=== PATIENT | female | born 1985 | race Two or more races ===

== ENCOUNTER 2016-06-19 08:27 | Emergency (ER) | payer MEDICAID ==
[~2016-06-19] VITALS: Ht 170.2 cm; Wt 49.9 kg
[~2016-06-19 08:27] MED LIST: AMOXICILLIN500 MG ORAL; COLACE100 MG PO; DOXYCYCLINE MO100 MG ORAL; IBUPROFEN400 MG ORAL; IBUPROFEN600 MG ORAL; LIDOCAINE VISCO20 ML PO; MACROBID100 MG ORAL; NAPROXEN375 M2 ORAL; NKM; NORCO 5-325 TA1 EACH ORAL; OFLOXACIN10 ML OP; PHENAZOPYRIDIN200 MG ORAL; PRENATAL CAPSU1 EAC1 PO; ZITHROMAX250 MG ORAL
[2016-06-19] MEDS ORDERED: NKM (08:42)
[2016-06-19 08:46] VITALS: BP 92/57
[2016-06-19 09:21] LABS: APPEARANCE,URINE CLEAR; KETONES,URINE NEGATIVE (NEGATIVE); LEUKOCYTE ESTERASE ,URINE NEGATIVE (NEGATIVE); NITRITE,URINE NEGATIVE (NEGATIVE); PH,URINE 6 (4.5-8.0); PROTEIN,URINE NEGATIVE (NEGATIVE); UROBILINOGEN,URINE NORMAL MG/DL (0.0-1.0)
[2016-06-19] MEDS ORDERED: PETROLEUM JELL368 GM TP (10:22)
[2016-06-19 10:27] VITALS: BP 98/62
--- NOTE | 2016-06-20 15:11 | Emergency Room Report ---
History of Present Illness General Chief Complaint: Vaginal Source: Patient Present Illness HPI 30 YO F with itch/rash to below vagina for 2-3 days since being tx for vaginal fungus with fluconazole. Denies dysuria, polyuria, chance of being , previous STD. Allergies: Coded Allergies: No Known Allergies (Unverified , 10/02/12) Patient History Past Surgical History: none Pertinent Family History: none Social History: Denies: alcohol use, drug use, smoking Now: No Immunizations: UTD Reviewed Nursing Documentation: PMH: Agreed, PSxH: Agreed Nursing Documentation-PMH Past Medical History: No Stated History Hx Cardiac Problems: No Review of Systems All Other Systems: negative except mentioned in HPI Physical Exam Vital Signs Date Time Temp Pulse Resp B/P Pulse Ox O2 Delivery O2 Flow Rate FiO2 06/19/16 08:36 98.2 64 16 92/57 99 Room Air Sp02 EP Interpretation: reviewed, normal General Appearance: normal inspection, well appearing, no apparent distress, alert Head: atraumatic ENT: normal ENT inspection, hearing grossly normal, normal voice Neck: normal inspection, full range of motion, supple, no bony tend Respiratory: normal inspection, lungs clear, normal breath sounds, no respiratory distress, no retraction, no wheezing Cardiovascular #1: regular rate, rhythm, no edema Gastrointestinal: normal inspection, normal bowel sounds, non tender, soft, no guarding, no hernia Genitourinary: no CVA tenderness, other - Pelvic exam done with JANELLE Mirza. No bleeding or discharge from vagina. No vesicles on labia. There is a mobilliform rash area of 2cm on perineum with excoriations. Musculoskeletal: normal inspection, back normal, normal range of motion, Bhumi' s Sign negative Neurologic: normal inspection, alert, responsive, speech normal Psychiatric: normal inspection, judgement/insight normal, mood/affect normal Skin: normal inspection, normal color, no rash Medical Decision Making Diagnostic Impression: Primary Impression: Contact dermatitis Qualified Codes: L24.89 - Irritant contact dermatitis due to other agents ER Course 30 YO F with likely contact dermatitis from irritation/scratching vs "heat rash. " VSS. Afebrile. No vesicles, chancres or signs of STD UA negative for UTI Advised petroleum jelly for irritation, lose clothing, PMD followup [place] Last Vital Signs Date Time Temp Pulse Resp B/P Pulse Ox O2 Delivery O2 Flow Rate FiO2 06/19/16 10:27 66 12 98/62 97 Room Air 06/19/16 08:46 98.3 Status: improved Disposition: HOME, SELF-CARE Condition: Improved Scripts Petrolatum,White (Petroleum Jelly) 368 Gm Jelly..g. 368 GM TP TID for 7 Days, GM Prov: FRANCES REED M.D. 06/19/16 Patient Instructions: Vaginitis, [id number] Additional Instructions: - Apply cream to area of irritation up to 3x a day FRANCES REED M.D. Jun 20, 2016 15:11
== END 2016-06-19 10:31 | disposition home or self-care (01) ==
LOC: EMR 08:52
DX: L25.9 Unspecified contact dermatitis, unspecified cause (principal)
CPT/HCPCS: 81003; 81025; 99284

== ENCOUNTER 2016-10-09 11:53 | Emergency (ER) | payer MEDICAID ==
[~2016-10-09] VITALS: Ht 162.6 cm; Wt 50.8 kg
[~2016-10-09 11:53] MED LIST changes: +PETROLEUM JELL368 GM TP
--- NOTE | 2016-10-09 12:23 | Emergency Room Report ---
History of Present Illness General Chief Complaint: To Be Triaged Present Illness HPI 31-year-old female presents to emergency department complaining of sore throat, and bilateral ear pain x3 days. Patient reports intermittent fevers and chills states pain is exacerbated upon swallowing she rates her pain as 10 out of 10 in severity describes a tearing sensation. 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 Patient reports ill contacts with similar symptoms. Patient denies . Denies CP, Palpitations, LOC, AMS, dizziness, Changes in Vision, Sensation, paresthesias, or a sudden severe headache. Allergies: Coded Allergies: No Known Allergies (Unverified , 10/02/12) Patient History Past Medical History: see triage record Past Surgical History: none Pertinent Family History: none Now: No Immunizations: UTD Reviewed Nursing Documentation: PMH: Agreed, PSxH: Agreed Nursing Documentation-PMH Hx Cardiac Problems: No Review of Systems All Other Systems: negative except mentioned in HPI Physical Exam HR 74, temp 98.2 rr: 16, BP 103/67 , oxygen sat 99% on RA. General Appearance: no apparent distress, alert, GCS 15, non-toxic Head: normocephalic, atraumatic Eyes: bilateral eye PERRL, bilateral eye normal inspection ENT: hearing grossly normal, normal pharynx, no angioedema, normal voice, TMs + canals normal, uvula midline, moist mucus membranes, nasal congestion - clear rhinorrhea bilaterally. , tonsillar swelling, pharyngeal erythema Neck: full range of motion, no meningismus, no bony tend, supple/symm/no masses Respiratory: chest non-tender, lungs clear, normal breath sounds, speaking full sentences Cardiovascular #1: regular rate, rhythm, no edema Musculoskeletal: back normal, gait/station normal, normal range of motion, non- tender Neurologic: alert, oriented x3, responsive, motor strength/tone normal, sensory intact, speech normal Psychiatric: judgement/insight normal, memory normal, mood/affect normal Skin: normal color, no rash, warm/dry, well hydrated Lymphatic: other - bilateral subpartotid LAD. Medical Decision Making PA Attestation Dr. Merida is my supervising Physician whom patient management has been discussed with. Diagnostic Impression: Primary Impression: Pharyngitis, acute Qualified Codes: J02.0 - Streptococcal pharyngitis ER Course 31-year-old female presents to emergency department complaining of sore throat, and bilateral ear pain x3 days. Patient reports intermittent fevers and chills states pain is exacerbated upon swallowing she rates her pain as 10 out of 10 in severity describes a tearing sensation. Patient denies nausea, vomiting, abdominal pain, rashes, neck pain/stiffness or recent travel. Patient reports ill contacts with similar symptoms. 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 Ddx considered but are not limited to: pharyngitis, strep, PODIATRIC MEDICINE PROFESSOR, Ludwigs angina, URI , Post Nasal Drainage. Vital signs: are WNL, pt. is afebrile H&PE are most consistent with: pharyngitis presumed strep. ORDERS: None required at this time as the diagnosis is clinical ED INTERVENTIONS: none required at this time. DISCHARGE: At this time pt. is stable for d/c to home. Will provide printed patient care instructions, and any necessary prescriptions. Care plan and follow up instructions have been discussed with the patient prior to discharge. Disposition: HOME, SELF-CARE Condition: Stable Scripts Acetaminophen* (TYLENOL EXTRA STRENGTH*) 500 Mg Tablet 500 MG ORAL Q6H Y for Mild Pain/Temp > 100.5, #20 TAB 0 Refills Prov: Nia Serra 10/09/16 Lidocaine HCl (Lidocaine HCl Viscous) 100 Ml Solution 15 ML PO QID Y for For Pain, #200 ML Prov: Nia Serra 10/09/16 Amoxicillin* (AMOXIL*) 500 Mg Capsule 500 MG ORAL BID for 10 Days, #20 CAP Prov: Nia Serra 10/09/16 Patient Instructions: Pharyngitis Additional Instructions: Take medications as directed. Follow up with PCP in 3-5 days Return sooner to ED if new symptoms occur, or current symptoms become worse. - Please note that this Emergency Department Report was dictated using [email or web address] security officer technology software, occasionally this can lead to erroneous entry secondary to interpretation by the dictation equipment. Nia Serra October 09, 2016 12:23
[2016-10-09] MEDS ORDERED: LIDOCAINE VISCO20 ML PO (12:24)
[2016-10-09] MEDS ORDERED: TYLENOL EXTRA500 MG ORAL (12:24)
[2016-10-09] MEDS ORDERED: AMOXICILLIN500 MG ORAL (12:24)
[2016-10-09 12:25] VITALS: BP 103/67
[2016-10-09 12:38] VITALS: BP 110/82
== END 2016-10-09 14:00 | disposition home or self-care (01) ==
LOC: EMR 12:23
DX: J02.0 Streptococcal pharyngitis (principal)
CPT/HCPCS: 99284

== ENCOUNTER 2017-05-18 09:31 | Emergency (ER) | payer MEDICAID ==
[~2017-05-18] VITALS: Ht 160 cm; Wt 49.9 kg
[~2017-05-18 09:31] MED LIST changes: +TYLENOL EXTRA500 MG ORAL
[2017-05-18 09:57] VITALS: BP 103/60
[2017-05-18] MEDS ORDERED: IBUPROFEN600 MG ORAL (10:02)
[2017-05-18] MEDS ORDERED: LIDOCAINE VISCO20 ML PO (10:02)
[2017-05-18] MEDS ORDERED: FLONASE ALLERG9.9 ML NS (10:02)
--- NOTE | 2017-05-18 10:07 | Emergency Room Report ---
History of Present Illness General Chief Complaint: Sore Throat Source: Patient Present Illness HPI 31-year-old female walks in with chief complaint of sore throat for 5 days associated with nasal congestion and "flu". Didnt get flu vaccine this year, no sick contacts at home. Denies history of COPD, CHF, asthma no Recent other URI symptoms or hospitalization Allergies: Coded Allergies: No Known Allergies (Unverified , 10/02/12) Patient History Past Medical History: none Past Surgical History: none Pertinent Family History: none Social History: Denies: smoking, alcohol use, drug use Last Menstrual Period: 04/21/17 Now: No Immunizations: UTD Reviewed Nursing Documentation: PMH: Agreed, PSxH: Agreed Nursing Documentation-PMH Past Medical History: No Stated History Hx Cardiac Problems: No Review of Systems All Other Systems: negative except mentioned in HPI Physical Exam Vital Signs Date Time Temp Pulse Resp B/P (MAP) Pulse Ox O2 Delivery O2 Flow Rate FiO2 05/18/17 09:57 98.1 77 16 103/60 100 Room Air Sp02 EP Interpretation: reviewed, normal General Appearance: normal inspection, well appearing, no apparent distress, alert, GCS 15, non-toxic Head: normocephalic, atraumatic Eyes: bilateral eye PERRL, bilateral eye EOMI ENT: normal ENT inspection, hearing grossly normal, normal pharynx, no angioedema, normal voice, TMs + canals normal, uvula midline Neck: normal inspection, full range of motion, supple, no bony tend Respiratory: normal inspection, lungs clear, normal breath sounds, no respiratory distress, no retraction, no wheezing Cardiovascular #1: regular rate, rhythm, no edema Gastrointestinal: normal inspection, normal bowel sounds, non tender, soft, no guarding, no hernia Genitourinary: no CVA tenderness Musculoskeletal: normal inspection, back normal, normal range of motion, Bhumi' s Sign negative Neurologic: normal inspection, alert, oriented x3, responsive, director of conservation III-XII nml as tested, motor strength/tone normal, speech normal Psychiatric: normal inspection, judgement/insight normal, mood/affect normal Skin: normal inspection, normal color, no rash Medical Decision Making Diagnostic Impression: Primary Impression: Pharyngitis, acute Qualified Codes: J02.9 - Acute pharyngitis, unspecified ER Course 31-year-old female Likely viral pharyngitis No sign of bacterial infection in oropharynx or ears Vital signs stable, afebrile Not septic appearing, appearing well ER course: Patient has remained stable during ED stay. Patient is to be discharged to home. Prescriptions given are motrin, oral lidocaine, flonase Patient is instructed to follow up with their primary care doctor within 5 days. Strict return precautions discussed with patient such as fever, chills, worsening/severe pain, nausea, vomiting, which may indicate severe illness. Patient verbalizes understanding and agrees with plan. Please note that this Emergency Department Report was dictated using [email or web address] technology software, occasionally this can lead to erroneous entry secondary to interpretation by the dictation equipment Last Vital Signs Date Time Temp Pulse Resp B/P (MAP) Pulse Ox O2 Delivery O2 Flow Rate FiO2 05/18/17 09:57 98.1 77 16 103/60 100 Room Air Status: improved Disposition: HOME, SELF-CARE Condition: Improved Scripts Fluticasone Propionate (Flonase Allergy Relief) 9.9 Ml [place].susp 9.9 ML NS BID for nasal congestion for 7 Days, #1 UNIT Prov: FRNACES REED M.D. 05/18/17 Ibuprofen* (MOTRIN*) 600 Mg Tablet 600 MG ORAL THREE TIMES A DAY for For Pain for 7 Days, #30 TAB 0 Refills Prov: FRANCES REED M.D. 05/18/17 Lidocaine HCl 2% Viscous (Lidocaine HCl 2% Viscous) 100 Ml Solution 15 ML PO QID Y for For Pain, #200 ML Prov: FRANCES REED M.D. 05/18/17 Patient Instructions: Pharyngitis, [id number] FRANCES REED M.D. May 18, 2017 10:07
[2017-05-18 10:10] VITALS: BP 103/60
== END 2017-05-18 10:14 | disposition home or self-care (01) ==
LOC: EMR 10:05
DX: J02.9 Acute pharyngitis, unspecified (principal)
CPT/HCPCS: 99283

== ENCOUNTER 2018-05-10 09:11 | Emergency (ER) | payer MEDICAID ==
[~2018-05-10] VITALS: Ht 167.6 cm; Wt 50.3 kg
[~2018-05-10 09:11] MED LIST changes: +FLONASE ALLERG9.9 ML NS
[2018-05-10 09:48] VITALS: BP 105/70
[2018-05-10 09:50] LABS: BASOPHILS % (AUTO) 1.4 % (0.0-2.0); EOSINOPHILS % (AUTO) 3.7 % (0.0-3.0); HEMATOCRIT 40.8 % (37.0-47.0); HEMOGLOBIN 13.6 G/DL (12.0-16.0); LYMPHOCYTES % (AUTO) 16.2 % (20.0-45.0); MEAN CORPUSCULAR VOLUME 88 FL (80-99); NEUTROPHILS % (AUTO) 67.7 % (45.0-75.0); PLATELET COUNT 215 K/UL (150-450); RED BLOOD COUNT 4.62 M/UL (4.20-5.40); RED CELL DISTRIBUTION WIDTH 11.4 % (11.6-14.8); WHITE BLOOD COUNT 5.2 K/UL (4.8-10.8)
[2018-05-10 09:52] LABS: APPEARANCE,URINE CLEAR; BILIRUBIN, URINE NEGATIVE (NEGATIVE); GLUCOSE, URINE (UA) NEGATIVE (NEGATIVE); KETONES,URINE NEGATIVE (NEGATIVE); LEUKOCYTE ESTERASE ,URINE NEGATIVE (NEGATIVE); NITRITE,URINE NEGATIVE (NEGATIVE); PH,URINE 5 (4.5-8.0); PROTEIN,URINE 1+ (NEGATIVE); UROBILINOGEN,URINE 1 MG/DL (0.0-1.0)
[2018-05-10 10:00] LABS: COLOR,URINE YELLOW
[2018-05-10 10:05] LABS: ANION GAP 8 mmol/L (5-15); BLOOD UREA NITROGEN 8 mg/dL (7-18); CALCIUM 8.9 MG/DL (8.5-10.1); CARBON DIOXIDE 26 MMOL/L (21-32); CHLORIDE 106 MMOL/L (98-107); CREATININE 0.7 MG/DL (0.55-1.30); SODIUM 140 MMOL/L (136-145)
[2018-05-10 10:15] LABS: ALANINE AMINOTRANSFERASE 18 U/L (12-78); ALBUMIN 3.9 G/DL (3.4-5.0); ALBUMIN/GLOBULIN RATIO 0.9 (1.0-2.7); ALKALINE PHOSPHATASE 68 U/L (46-116); ASPARTATE AMINO TRANSFERASE 13 U/L (15-37); BILIRUBIN,TOTAL 1.2 MG/DL (0.2-1.0)
--- NOTE | 2018-05-10 10:20 | Emergency Room Report ---
History of Present Illness General Chief Complaint: Abdominal Pain Source: Patient Present Illness HPI 32-year-old female with no medical problems, no surgical history, no history of tobacco, alcohol or drug use, presents with 2 weeks of epigastric pain radiating to her back reports a sharp, no nausea, vomiting, diarrhea, genitourinary complaints, any other complaints at all.She has not recommend medications for symptoms, reports no change with position or by mouth intake, and reports his symptom is been intermittent for 2 weeks. Allergies: Coded Allergies: No Known Allergies (Unverified , 10/02/12) Patient History Past Medical History: see triage record Now: No Reviewed Nursing Documentation: PMH: Agreed; PSxH: Agreed Nursing Documentation-PMH Past Medical History: No Stated History Hx Cardiac Problems: No Review of Systems All Other Systems: negative except mentioned in HPI Physical Exam Vital Signs Date Time Temp Pulse Resp B/P (MAP) Pulse Ox O2 Delivery O2 Flow Rate FiO2 05/10/18 09:16 98.1 91 17 104/53 98 Room Air Sp02 EP Interpretation: reviewed, normal General Appearance: no apparent distress, alert, non-toxic Head: normocephalic Eyes: bilateral eye normal inspection, bilateral eye PERRL, bilateral eye EOMI ENT: normal ENT inspection, hearing grossly normal, normal pharynx, no angioedema, normal voice, moist mucus membranes Neck: normal inspection, full range of motion, supple, supple/symm/no masses Respiratory: chest non-tender, lungs clear, normal breath sounds, chest symmetrical, palpation of chest normal Cardiovascular #1: normal peripheral pulses, regular rate, rhythm Cardiovascular #2: 2+ radial (R), 2+ radial (L) Gastrointestinal: normal inspection, non tender, soft, no mass, no guarding, no rebound Rectal: deferred Genitourinary: normal inspection, no CVA tenderness Musculoskeletal: back normal, gait/station normal, normal range of motion, non- tender, no calf tenderness Neurologic: alert, responsive, wood tool maker III-XII nml as tested, motor strength/tone normal, sensory intact, speech normal Psychiatric: judgement/insight normal, memory normal, mood/affect normal, no suicidal/homicidal ideation Skin: normal color, no rash, warm/dry, normal turgor Lymphatic: no adenopathy Medical Decision Making Diagnostic Impression: Primary Impression: Abdominal pain Additional Impressions: Dehydration Hematuria ER Course Other than hematuria and ketonuria, patient's workup was fairly unremarkable, she has a soft nontender abdomen, normal pulse exam, do not suspect aortic dissection or aneurysm or any other pathology that is acute, perhaps just dehydration from intermittent GI losses.Patient instructed to follow-up with PMD for GI referral, as well as possible urology referral for hematuria . CT/MRI/US Diagnostic Results CT/MRI/US Diagnostic Results : Imaging Test Ordered: ct a/p Impression no acute dz Last Vital Signs Date Time Temp Pulse Resp B/P (MAP) Pulse Ox O2 Delivery O2 Flow Rate FiO2 05/10/18 09:48 98.1 65 17 105/70 100 Room Air Disposition: HOME, SELF-CARE Condition: Stable Referrals: NOT CHOSEN [facility]/,REFERRING (PCP) AJ PEREZ M.D May 10, 2018 10:20
[2018-05-10 10:37] LABS: BILIRUBIN,DIRECT 0.2 MG/DL (0.0-0.3)
[2018-05-10 11:45] VITALS: BP 111/72
--- NOTE | 2018-05-10 12:13 | Diagnostic Imaging Report ---
Indication: Abdominal pain, 2 weeks of epigastric pain radiating to the back Technique: Spiral acquisitions obtained through the abdomen and pelvis. No oral contrast utilized, per emergency room physician request No IV contrast utilized, per referring physician request.. Multiplanar reconstructions were generated. Total dose length product 445.15 mGycm. CTDIvol(s) 9.4 mGy. Dose reduction achieved using automated exposure control Comparison: None Findings: Lack of enteric contrast limits assessment of the GI tract. The appendix appears normal. No evidence of diverticulosis or diverticulitis. No small bowel distention. No free or loculated intraperitoneal gas or fluid is evident. Distal esophagus, stomach, duodenum are unremarkable. Lack of IV contrast limits assessment of the solid organs. The liver, gallbladder, bile ducts, pancreas, spleen, adrenals, kidneys are all grossly unremarkable. No retroperitoneal or mesenteric mass or adenopathy. No pelvic mass or adenopathy. The bladder is massively distended. The uterus and ovaries are unremarkable. The included lung bases are clear. The bones are unremarkable Impression: Limited exam, due to lack of enteric and IV contrast administration Massively distended bladder No acute process otherwise The CT scanner at [facility] is accredited by the [employer] and the scans are performed using protocols designed to limit radiation exposure to as low as reasonably achievable to attain images of sufficient resolution adequate for diagnostic evaluation.
[2018-05-10 13:10] VITALS: BP 108/67
[2018-05-10] MEDS ORDERED: PEPCID AC20 M2 PO (13:24)
[2018-05-10] MEDS ORDERED: ZOFRAN4 M3 ORAL (13:24)
[2018-05-10 13:40] VITALS: BP 108/67
== END 2018-05-10 13:40 | disposition home or self-care (01) ==
LOC: EMR 09:33
DX: R10.13 Epigastric pain (principal); E86.0 Dehydration; R31.9 Hematuria, unspecified
CPT/HCPCS: 36415; 74176; 80053; 81003; 81025; 82248; 83690; 85025; 96360; 96361; 99284; J8499

== ENCOUNTER 2019-12-25 20:30 | Emergency (ER) | payer MEDICAID ==
[~2019-12-25] VITALS: Ht 127 cm; Wt 45.4 kg
[~2019-12-25 20:30] MED LIST changes: +PEPCID AC20 M2 PO; +ZOFRAN4 M3 ORAL
[2019-12-25 20:40] VITALS: BP 102/70
[2019-12-25] MEDS ORDERED: Ketorolac 60mg Inj IM ONE (21:15)
[2019-12-25] MEDS ORDERED: Methocarbamol 500mg tab ORAL ONE (21:15)
[2019-12-25 21:27] LABS: APPEARANCE,URINE CLEAR; BILIRUBIN, URINE NEGATIVE (NEGATIVE); COLOR,URINE PALE YELLOW; GLUCOSE, URINE (UA) NEGATIVE (NEGATIVE); KETONES,URINE NEGATIVE (NEGATIVE); LEUKOCYTE ESTERASE ,URINE NEGATIVE (NEGATIVE); NITRITE,URINE NEGATIVE (NEGATIVE); PH,URINE 7 (4.5-8.0); PROTEIN,URINE NEGATIVE (NEGATIVE); UROBILINOGEN,URINE NORMAL MG/DL (0.0-1.0)
--- NOTE | 2019-12-25 21:59 | Emergency Room Report ---
History of Present Illness General Chief Complaint: Back Pain-No Injury Source: Patient Present Illness HPI History of present illness: 34-year-old female complains of left scapular pain and left thoracic back pain past 4 days. 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 She has not tried anything to alleviate her symptoms. The patient's symptoms were gradual onset, severity was moderate, duration since 4 days. Denies chest pain, hemoptysis, shortness of breath, nausea, vomiting, diarrhea, fever, chills or other complaints. Past medical history: [Denies] Past surgical history: [Denies] Smoking: [ Denies] Alcohol use: [ Denies] Drug use: [ Denies] Review of systems: CONST: No fevers or chills, No night sweats PULMONARY: No productive cough, No shortness of breath CARDIAC: No chest pain, No palpitations GI: No vomiting, No diarrhea , No melena_or_BRBPR : No dysuria, No hematuria, No discharge NEURO: No new_focal_weakness_or_numbness, No confusion, No vision changes 14 point Review of Systems is otherwise negative except per HPI Physical Exam: GENERAL: Awake_alert_ nontoxic, no acute distress Spo2 100% on [RA], [normal] EYES: Extraocular muscles are intact. Conjunctivae clear. Lids without swelling ENT: External nose and ear normal_in_appearance. Oropharynx clear. Head_ atraumatic, Moist_oral_mucosa NECK: No JVD. No meningismus. No thyromegaly. Supple. Trachea midline Left paraspinal thoracic hypertonicity. No midline step-offs. No deformities. No C/T/L-spine step-offs. RESP: Normal respiratory effort. Symmetric rise. No stridor. Clear_to_ auscultation_No_rales_No_wheezes CARDIAC: Regular rate and regular rhythm on_auscultation No_significant pedal edema. ABDOMEN: Soft. Nondistended. Nontender_No_rebound_or_guarding. MSK: Normal muscle tone, without rigidity. Extremities without asymmetric deformity or swelling. SKIN: Warm and dry. No visible cyanosis or pallor NEUROLOGIC: Alert, oriented x3. Motor_and_sensation_grossly_intact. No truncal ataxia. Gait_normal Psych: Normal mood and affect, normal judgment and insight - COORDINATION OF CARE Case was discussed with: Patient Any labs that were ordered were interpreted as part of the medical decision making: Medical Decision Making/Plan: Differential diagnosis includes musculoskeletal pain, muscle spasm / sprain, vertebral fracture, spinal epidural abscess, spinal epidural hematoma, pyelonephritis, kidney stone, AAA, among others. The patient has no significant risk factors for AAA (abdominal aortic aneurysm) such as age over 50 with history of hypertension, connective tissue disorder, or 1st degree relative with AAA. In addition, the patient has normal dorsalis pedis pulses, and no pulsatile mass felt on exam. The patients profile was overall low risk for AAA and definitive workup was not pursued. The patient has no significant red flags on history or exam. Patient has no history of malignancy, active or distant history. Patient has no B symptoms: no unintentional weight loss, night sweats, or fevers. No longstanding steroid or other immunosuppressant usage. No mechanism for significant trauma. Patient has no vertebral deformity or midline tenderness and has a normal gait. Presentation not consistent with a vertebral fracture, so definitive imaging not pursued. Patient has no significant risk factors for spinal epidural emergency such as fever, IVDU, HIV, or anticoagulant use. Patient is neurologically intact without any lower extremity weakness / numbness, saddle anesthesia, urinary retention or fecal incontinence. No evidence of any emergent process of the spinal cord or cauda equina at this time. Urinalysis shows no evidence of pyelonephritis. The patients symptoms appear consistent with a musculoskeletal origin. The patient was counseled that they need to see their primary medical doctor in the next 1-2 days for reevaluation and further treatment, and to return immediately if symptoms change or worsen. 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-19 Testing performed CARDIOVASCULAR PHYSICIAN ASSISTANT: No Patient History Last Menstrual Period: 12/19/19 Now: No : 2 Para: 2 Nursing Documentation-[facility] Past Medical History: No Stated History Hx Cardiac Problems: No Physical Exam Vital Signs Date Time Temp Pulse Resp B/P (MAP) Pulse Ox O2 Delivery O2 Flow Rate FiO2 12/25/19 20:32 98.4 67 17 102/70 (81) 98 Room Air Medical Decision Making Diagnostic Impression: Primary Impression: Back pain Additional Impression: Muscle spasm Reevaluation Time: 21:57 Last Vital Signs Date Time Temp Pulse Resp B/P (MAP) Pulse Ox O2 Delivery O2 Flow Rate FiO2 12/25/19 20:40 98.4 67 17 102/70 98 Room Air Status: improved Disposition: HOME, SELF-CARE Admit Decision Time: 21:58 Condition: Stable Scripts Methocarbamol* (ROBAXIN-500*) 500 Mg Tablet 500 MG ORAL QID PRN for For Pain, #20 TAB 0 Refills Prov: Marie Watson D.O. 12/25/19 Naproxen* (NAPROXEN*) 500 Mg Tablet.dr 500 MG ORAL TWICE A DAY for 10 Days, #20 TAB Prov: Marie Watson D.O. 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 Avoid heavy lifting. Follow-up with your doctor sooner if your condition requires a more timely clinical reevaluation. Return to the emergency department immediately if you feel that your condition is worsening or if you have any new or concerning symptoms. Review your discharge instructions and take any prescriptions given as instructed. Do not drive or operate heavy machinery while taking robaxin as it can make you sleepy. Marie Watson D.O. Dec 25, 2019 21:59
[2019-12-25] MEDS ORDERED: ROBAXIN-500MG ORAL (22:01)
[2019-12-25] MEDS ORDERED: NAPROXEN500 M1 ORAL (22:01)
[2019-12-25 22:10] VITALS: BP 105/85
--- NOTE | 2019-12-26 10:10 | Diagnostic Imaging Report ---
Procedure: XRAY Chest 2v Reason for study: Chest pain Comparison films: None. FINDINGS: Frontal and lateral views of the chest are obtained. Vascularity is normal. There is slight interstitial prominence but no acute alveolar process. Cardiac and mediastinal silhouette are within normal limits. CP angles are sharp. The bony thorax appear unremarkable. IMPRESSION: Slight interstitial prominence. No acute alveolar process.
== END 2019-12-25 22:10 | disposition home or self-care (01) ==
LOC: EMR 20:55
DX: M54.5 Low back pain (principal); M54.6 Pain in thoracic spine; R07.9 Chest pain, unspecified
CPT/HCPCS: 71046; 81001; 81025; 96372; Z7502; 99283

== ENCOUNTER 2020-01-29 21:16 | Emergency (ER) | payer MEDICAID ==
[~2020-01-29] VITALS: Ht 167.6 cm; Wt 49.9 kg
[~2020-01-29 21:16] MED LIST changes: +NAPROXEN500 M1 ORAL; +ROBAXIN-500MG ORAL
[2020-01-29 21:30] VITALS: BP 115/69
[2020-01-29] MEDS ORDERED: Ketorolac 30mg Inj IV ONE (22:15)
--- NOTE | 2020-01-29 22:36 | Emergency Room Report ---
History of Present Illness General Chief Complaint: Chest Pain Source: Patient Present Illness HPI Patient is a 34-year-old female denies any significant past medical history who presents to the ER complaining of substernal chest pain and shortness of breath intermittent over the past 2 weeks. Patient denies any fever or chills. She denies any cough. She denies any rash. She denies being on any hormones or OCPs. She denies any abdominal pain, nausea or vomiting. Patient states that she was treated with antibiotics 2 weeks ago but has persistent symptoms. On review patient was seen here almost a month ago and was treated with Robaxin and naproxen for musculoskeletal back pain. 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 COVID-19 Screening: Negative COVID-19 COVID-19 Testing Source: 2 weeks ago Patient History Last Menstrual Period: unk Reviewed Nursing Documentation: PMH: Agreed; PSxH: Agreed Nursing Documentation-PMH Hx Cardiac Problems: No Review of Systems All Other Systems: negative except mentioned in HPI Physical Exam Vital Signs Date Time Temp Pulse Resp B/P (MAP) Pulse Ox O2 Delivery O2 Flow Rate FiO2 01/29/20 21:19 97.9 72 18 115/69 (84) 97 Room Air Sp02 EP Interpretation: reviewed, normal General Appearance: no apparent distress, alert, GCS 15, non-toxic Head: normocephalic, atraumatic Eyes: bilateral eye normal inspection, bilateral eye PERRL ENT: hearing grossly normal, normal pharynx, no angioedema, normal voice Neck: full range of motion, supple/symm/no masses Respiratory: chest non-tender, lungs clear, normal breath sounds, speaking full sentences Cardiovascular #1: regular rate, rhythm, no edema Gastrointestinal: normal bowel sounds, non tender, soft, non-distended, no guarding, no rebound Rectal: deferred Musculoskeletal: no calf tenderness, no lower extremity edema 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 Aortic dissection was considered but in the physical exam the patient has equal pulses in all extremities, no new focal neurological deficits, no apparent diastolic murmur on the cardiac exam, and no widening of the mediastinum on CXR. Pulmonary embolism was also considered however I believe patient to be low risk given negative d-dimer, normal heart rate, no evidence of hypoxemia, no significant unilateral leg swelling, no recent travel, no OCP or HRT use, no history of cancer, no right axis deviation on EKG, and no recent surgery. I also doubt that this is acute coronary syndrome since EKG shows no STEMI, troponin is normal, and the patients chest pain has resolved. The patient was counseled that, though unlikely, the possibility of an emergent cause of chest pain may still be present and that the patient should return immediately if symptoms persists or worsen. I believe the patient is stable for discharge to follow-up with their PMD. Laboratory Tests Test 01/29/20 22:15 White Blood Count 5.7 K/UL (4.8-10.8) Red Blood Count 4.21 M/UL (4.20-5.40) Hemoglobin 12.7 G/DL (12.0-16.0) Hematocrit 38.0 % (37.0-47.0) Mean Corpuscular Volume 90 FL (80-99) Mean Corpuscular Hemoglobin 30.1 PG (27.0-31.0) Mean Corpuscular Hemoglobin Concent 33.3 G/DL (32.0-36.0) Red Cell Distribution Width 12.7 % (11.6-14.8) Platelet Count 186 K/UL (150-450) Mean Platelet Volume 9.6 FL (6.5-10.1) Neutrophils (%) (Auto) 47.0 % (45.0-75.0) Lymphocytes (%) (Auto) 37.6 % (20.0-45.0) Monocytes (%) (Auto) 8.9 % (1.0-10.0) Eosinophils (%) (Auto) 5.3 % (0.0-3.0) H Basophils (%) (Auto) 1.3 % (0.0-2.0) D-Dimer 0.44 mg/L FEU (0.00-0.49) Urine HCG, Qualitative Negative (NEGATIVE) Sodium Level 143 MMOL/L (136-145) Potassium Level 3.1 MMOL/L (3.5-5.1) L Chloride Level 106 MMOL/L (98-107) Carbon Dioxide Level 27 MMOL/L (21-32) Anion Gap 10 mmol/L (5-15) Blood Urea Nitrogen 9 mg/dL (7-18) Creatinine 0.8 MG/DL (0.55-1.30) Estimated Glomerular Filtration Rate > 60 mL/min (>60) Glucose Level 141 MG/DL (74-106) H Calcium Level 8.7 MG/DL (8.5-10.1) Total Bilirubin 1.6 MG/DL (0.2-1.0) H Direct Bilirubin 0.3 MG/DL (0.0-0.3) Aspartate Amino Transferase (AST) 9 U/L (15-37) L Alanine Aminotransferase (ALT) 10 U/L (12-78) L Alkaline Phosphatase 54 U/L (46-116) Troponin I 0.000 ng/mL (0.000-0.056) Total Protein 7.5 G/DL (6.4-8.2) Albumin 4.3 G/DL (3.4-5.0) Globulin 3.2 g/dL Albumin/Globulin Ratio 1.3 (1.0-2.7) Microbiology Date/Time Source Procedure Growth Status 01/29/20 22:20 Nasopharynx SARS-CoV-2 RdRp Gene Assay - Final Complete EKG Diagnostic Results EKG Time: 21:40 EP Interpretation: Bertha Oliver MD Rate: normal - 68 bpm Rhythm: NSR ST Segments: no acute changes ASA given to the pt in ED: No Chest X-Ray Diagnostic Results Chest X-Ray Diagnostic Results : Chest X-Ray Ordered: Yes # of Views/Limited/Complete: 1 View Indication: Chest Pain EP Interpretation: Yes Interpretation: no consolidation, no effusion, no pneumothorax, no acute cardiopulmonary disease Impression: No acute disease Electronically Signed by: Bertha Oliver MD Last Vital Signs Date Time Temp Pulse Resp B/P (MAP) Pulse Ox O2 Delivery O2 Flow Rate FiO2 01/29/20 21:19 97.9 72 18 115/69 (84) 97 Room Air Condition: Stable Scripts Ibuprofen* (MOTRIN*) 600 Mg Tablet 600 MG ORAL FOUR TIMES A DAY, #30 TAB 0 Refills Prov: Bertha Oliver M.D. 01/29/20 Additional Instructions: The patient was provided with discharge instructions, notified to follow-up with a primary care doctor and or specialist in the next 24-48 hours, and to return to the ED if they have worsening of their symptoms. Please note that this report is being documented using [employer] technology. This can lead to erroneous entry secondary to incorrect interpretation by the dictating instrument. Bertha Oliver M.D. Jan 29, 2020 22:36
[2020-01-29 22:41] LABS: BASOPHILS % (AUTO) 1.3 % (0.0-2.0); EOSINOPHILS % (AUTO) 5.3 % (0.0-3.0); HEMOGLOBIN 12.7 G/DL (12.0-16.0); LYMPHOCYTES % (AUTO) 37.6 % (20.0-45.0); MEAN CORPUSCULAR VOLUME 90 FL (80-99); MONOCYTES % (AUTO) 8.9 % (1.0-10.0); PLATELET COUNT 186 K/UL (150-450); RED BLOOD COUNT 4.21 M/UL (4.20-5.40); RED CELL DISTRIBUTION WIDTH 12.7 % (11.6-14.8); WHITE BLOOD COUNT 5.7 K/UL (4.8-10.8)
[2020-01-29 22:53] LABS: ANION GAP 10 mmol/L (5-15); BLOOD UREA NITROGEN 9 mg/dL (7-18); CALCIUM 8.7 MG/DL (8.5-10.1); CARBON DIOXIDE 27 MMOL/L (21-32); CHLORIDE 106 MMOL/L (98-107); CREATININE 0.8 MG/DL (0.55-1.30); POTASSIUM 3.1 MMOL/L (3.5-5.1); SODIUM 143 MMOL/L (136-145)
[2020-01-29 23:03] LABS: ALANINE AMINOTRANSFERASE 10 U/L (12-78); ALBUMIN 4.3 G/DL (3.4-5.0); ALBUMIN/GLOBULIN RATIO 1.3 (1.0-2.7); ALKALINE PHOSPHATASE 54 U/L (46-116); ASPARTATE AMINO TRANSFERASE 9 U/L (15-37); BILIRUBIN,TOTAL 1.6 MG/DL (0.2-1.0)
[2020-01-29 23:06] LABS: BILIRUBIN,DIRECT 0.3 MG/DL (0.0-0.3)
[2020-01-29] MEDS ORDERED: IBUPROFEN600 M1 ORAL (23:14)
[2020-01-29 23:20] VITALS: BP 120/70
--- NOTE | 2020-01-30 09:49 | Diagnostic Imaging Report ---
Indication: Shortness of breath Technique: XRAY Chest 1v Comparison: 12/25/2019 Findings: Heart size and mediastinal contours within normal limits and stable compared to the prior exam. Bilateral rounded densities project over the lower lungs favored to represent nipple shadows. There is no focal airspace consolidation. No pleural effusion, pneumothorax or radiographic evidence of pulmonary edema. No acute osseous abnormality. Impression: Rounded densities projecting over the bilateral lower lungs favored to represent nipple shadows. Consider follow-up exam with nipple markers for definitive assessment. No radiographic evidence of acute cardiopulmonary disease.
== END 2020-01-29 23:20 | disposition home or self-care (01) ==
LOC: EMR 22:30
DX: R07.9 Chest pain, unspecified (principal); R06.02 Shortness of breath
CPT/HCPCS: 36415; 71045; 80053; 81025; 82248; 84484; 85025; 85379; 93005; 96361; 96374; J1885; J7030; U0002; Z7502; 99284; J8499

== ENCOUNTER 2020-05-31 10:18 | Emergency (ER) | payer MEDICAID ==
[~2020-05-31] VITALS: Ht 162.6 cm; Wt 49.9 kg
[~2020-05-31 10:18] MED LIST changes: +IBUPROFEN600 M1 ORAL
[2020-05-31 10:45] VITALS: BP 92/56
[2020-05-31] MEDS ORDERED: Ketorolac 30mg Inj IV ONE (10:45)
--- NOTE | 2020-05-31 10:46 | Emergency Room Report ---
History of Present Illness General Chief Complaint: Pain Source: Patient Present Illness HPI Patient is a 34-year-old female denies any significant past medical history who presents to the ER complaining of paresthesias to bilateral upper extremities. Patient states that it has been intermittent since yesterday. She denies any headache, head trauma, blurry vision, focal weakness, neck pain or neck trauma. She denies any weakness in her extremities. She states that she tried to take Tylenol but it did not help. She denies any chest pain or shortness of breath. 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 Patient History Reviewed Nursing Documentation: PMH: Agreed; PSxH: Agreed Nursing Documentation-PMH Past Medical History: No Stated History Hx Cardiac Problems: No Review of Systems All Other Systems: negative except mentioned in HPI Physical Exam Vital Signs Date Time Temp Pulse Resp B/P (MAP) Pulse Ox O2 Delivery O2 Flow Rate FiO2 05/31/20 10:32 98.6 79 18 92/56 (68) 96 Room Air Sp02 EP Interpretation: reviewed, normal General Appearance: no apparent distress, alert, GCS 15, non-toxic Head: normocephalic, atraumatic Eyes: bilateral eye normal inspection, bilateral eye PERRL ENT: hearing grossly normal, normal pharynx, no angioedema, normal voice Neck: full range of motion, supple/symm/no masses Respiratory: chest non-tender, lungs clear, normal breath sounds, speaking full sentences Cardiovascular #1: regular rate, rhythm, no edema Cardiovascular #2: 2+ radial (R), 2+ radial (L) Gastrointestinal: normal bowel sounds, non tender, soft, non-distended, no guarding, no rebound Rectal: deferred Musculoskeletal: normal range of motion, moves extm spontaneously Neurologic: motor strength/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 Patient given Toradol and IV fluids. She states that her symptoms have resolved. Labs demonstrate no significant acute abnormalities. Patient be discharged home with gabapentin as needed. After discussing risks and benefits of further diagnostics, treatment plans, as well as indications for and risks of admission, the patient is agreeable to being discharged home. I have explained that their evaluation and treatment in the emergency department today is an important step towards them achieving better health but that their evaluation today is not intended to replace further evaluation and treatment by a physician in their local clinic. I have explained that while the current findings suggest no immediate life threatening emergency they will require further evaluation and treatment by a physician of their [place] in their area. They understand that it will be necessary for them to review the final reports of their ED visit with their clinic physician. We have reviewed indications for return to the Emergency Department. I have explained that additional time may need to pass and/or additional testing as an outpatient may be necessary before a definitive diagnosis can be made. They tell me they are willing to follow up as instructed within the timeframe I recommend. They appear to understand what we discussed. Additionally they understand that if they are unable to be seen by an outpatient physician they are welcome, and in fact should, return to the Emergency Department for a repeat evaluation. The patient is stable at time of discharge. Laboratory Tests Test 05/31/20 10:47 White Blood Count 5.2 K/UL (4.8-10.8) Red Blood Count 4.30 M/UL (4.20-5.40) Hemoglobin 12.8 G/DL (12.0-16.0) Hematocrit 36.4 % (37.0-47.0) L Mean Corpuscular Volume 85 FL (80-99) Mean Corpuscular Hemoglobin 29.8 PG (27.0-31.0) Mean Corpuscular Hemoglobin Concent 35.2 G/DL (32.0-36.0) Red Cell Distribution Width 15.0 % (11.6-14.8) H Platelet Count 187 K/UL (150-450) Mean Platelet Volume 8.6 FL (6.5-10.1) Neutrophils (%) (Auto) 58.7 % (45.0-75.0) Lymphocytes (%) (Auto) 24.8 % (20.0-45.0) Monocytes (%) (Auto) 9.7 % (1.0-10.0) Eosinophils (%) (Auto) 4.5 % (0.0-3.0) H Basophils (%) (Auto) 2.3 % (0.0-2.0) H Sodium Level 138 MMOL/L (136-145) Potassium Level 3.6 MMOL/L (3.5-5.1) Chloride Level 106 MMOL/L (98-107) Carbon Dioxide Level 24 MMOL/L (21-32) Anion Gap 8 mmol/L (5-15) Blood Urea Nitrogen 10 mg/dL (7-18) Creatinine 0.6 MG/DL (0.55-1.30) Estimated Glomerular Filtration Rate > 60 mL/min (>60) Glucose Level 84 MG/DL (74-106) Calcium Level 8.6 MG/DL (8.5-10.1) Magnesium Level 1.9 MG/DL (1.8-2.4) Total Bilirubin 1.7 MG/DL (0.2-1.0) H Direct Bilirubin 0.3 MG/DL (0.0-0.3) Aspartate Amino Transferase (AST) 15 U/L (15-37) Alanine Aminotransferase (ALT) 18 U/L (12-78) Alkaline Phosphatase 61 U/L (46-116) Total Protein 7.5 G/DL (6.4-8.2) Albumin 3.9 G/DL (3.4-5.0) Globulin 3.6 g/dL Albumin/Globulin Ratio 1.1 (1.0-2.7) Last Vital Signs Date Time Temp Pulse Resp B/P (MAP) Pulse Ox O2 Delivery O2 Flow Rate FiO2 05/31/20 10:32 98.6 79 18 92/56 (68) 96 Room Air Disposition: HOME, SELF-CARE Condition: Stable Scripts Gabapentin (Neurontin) 300 Mg Capsule 300 MG ORAL BEDTIME, #7 CAP 0 Refills Prov: Bertha Oliver M.D. 05/31/20 Additional Instructions: The patient was provided with discharge instructions, notified to follow-up with a primary care doctor and or specialist in the next 24-48 hours, and to return to the ED if they have worsening of their symptoms. Please note that this report is being documented using [employer] technology. This can lead to erroneous entry secondary to incorrect interpretation by the dictating instrument. Bertha Oliver M.D. May 31, 2020 10:46
[2020-05-31 11:16] LABS: BASOPHILS % (AUTO) 2.3 % (0.0-2.0); EOSINOPHILS % (AUTO) 4.5 % (0.0-3.0); HEMATOCRIT 36.4 % (37.0-47.0); HEMOGLOBIN 12.8 G/DL (12.0-16.0); LYMPHOCYTES % (AUTO) 24.8 % (20.0-45.0); MEAN CORPUSCULAR VOLUME 85 FL (80-99); MONOCYTES % (AUTO) 9.7 % (1.0-10.0); NEUTROPHILS % (AUTO) 58.7 % (45.0-75.0); PLATELET COUNT 187 K/UL (150-450); WHITE BLOOD COUNT 5.2 K/UL (4.8-10.8)
[2020-05-31 11:23] LABS: ANION GAP 8 mmol/L (5-15); BLOOD UREA NITROGEN 10 mg/dL (7-18); CALCIUM 8.6 MG/DL (8.5-10.1); CARBON DIOXIDE 24 MMOL/L (21-32); CHLORIDE 106 MMOL/L (98-107); CREATININE 0.6 MG/DL (0.55-1.30); POTASSIUM 3.6 MMOL/L (3.5-5.1); SODIUM 138 MMOL/L (136-145)
[2020-05-31] MEDS ORDERED: NEURONTIN300 MG ORAL (11:36)
[2020-05-31 11:41] LABS: ALANINE AMINOTRANSFERASE 18 U/L (12-78); ALBUMIN 3.9 G/DL (3.4-5.0); ALBUMIN/GLOBULIN RATIO 1.1 (1.0-2.7); ALKALINE PHOSPHATASE 61 U/L (46-116); ASPARTATE AMINO TRANSFERASE 15 U/L (15-37); BILIRUBIN,TOTAL 1.7 MG/DL (0.2-1.0)
[2020-05-31 11:42] LABS: BILIRUBIN,DIRECT 0.3 MG/DL (0.0-0.3)
[2020-05-31 11:49] VITALS: BP 100/58
== END 2020-05-31 11:49 | disposition home or self-care (01) ==
LOC: EMR 10:50
DX: R20.2 Paresthesia of skin (principal)
CPT/HCPCS: 36415; 80053; 82248; 83735; 85025; 96361; 96374; J1885; J7030; Z7502; 99284